=== PATIENT | female | born 1985 | race American Indian/Alaskan Native ===

== ENCOUNTER 2017-09-14 13:07 | Outpatient (CLI) | payer MEDICAID ==
[2017-09-14 13:46] VITALS: BP 114/56
--- NOTE | 2017-09-14 16:26 | Event Note ---
Date: 09/14/17 NST reactive bpp is 10/10 with normal JACKELIN as per report given to provider by charge nurse. Pt will f/u in the am for her scheduled c/s.
--- NOTE | 2017-09-14 17:39 | Ultrasound Report ---
FINAL REPORT EXAM: US OB LIMITED HISTORY: JACKELIN TECHNIQUE: Ultrasound obstetrical transabdominal PRIORS: None. FINDINGS: Limited single live intrauterine gestation present with heart rate of 134 beats per minute Presentation is cephalic Amniotic fluid index is 20.7 centimeters within normal limits IMPRESSION: Amniotic fluid index 20.7 centimeters within normal limits
--- NOTE | 2017-09-14 17:44 | Ultrasound Report ---
FINAL REPORT EXAM: US OB BPP WO NON-STRESS HISTORY: wellbeing TECHNIQUE: Grayscale and color doppler ultrasound of the fetus was performed for biophysical profile. PRIORS: None. FINDINGS: A single, live intrauterine fetus is present with a heart rate of 134 beats per minute. Estimated gestational age is 39 weeks and 3 days with an AIYANA of 09/18/2017. Biophysical profile score of 8 out of 8 was noted. Scores of 2 out of 2 were given for breathing movements, movements, posterior and tone and qualitative amniotic fluid volume IMPRESSION: Normal biophysical profile.
== END 2017-09-14 16:29 | disposition home or self-care (01) ==
LOC: TRG 13:07
PROVIDERS: ATTEND Obstetrics & Gynecology
DX: O47.03 False labor before 37 completed weeks of gestation, third trimester (principal); Z3A.39 39 weeks gestation of pregnancy
CPT/HCPCS: 59025; 76815; 76819

== ENCOUNTER 2017-09-15 03:31 | Inpatient (IN) | payer MEDICAID ==
--- NOTE | 2017-09-14 18:07 | History and Physical Report ---
History of Present Illness Date of examination: 09/14/17 Chief complaint: Repeat delivery History of present illness: Past History : 4 Term Births: 2 Living Children: 2 Para: 2 Elect. Ab: 1 # 1 Delivery date: 05/30/2014 Weeks Gestation: 39 Delivery type: Anesthesia type: epidural Delivery location: [facility] Infant Sex: female weight: 6.75 Comments: breech presentation # 2 Delivery date: 05/02/2016 Weeks Gestation: 39 Delivery type: Anesthesia type: epidural Delivery location: [facility] Sex: female weight: 7.75 Comments: breech presentation # 3 Delivery date: 2011 Delivery type: EAB Past Medical History: Reviewed history from 11/28/2013 and no changes required: Negative Past Medical History Past Surgical History: Breast Biopsy: (B) x3 benign (05/30/2014) x2 Family History Summary: Other family member - Has No Family History of Uterine Cancer - Entered On: 04/27 Other family member - Has No Family History of Stomach Cancer - Entered On: 04/27 Other family member - Has No Family History of Small Bowel Cancer - Entered On: 04/27/2017 Other family member - Has No Family History of Pancreatic Cancer - Entered On: Other family member - Has No Family History of Ovarvian Cancer - Entered On: Other family member - Has No Family History of Kidney/Urinary Tract Cancer - Entered On: 04/27/2017 Other family member - Has No Family History of DVT/PE on OCP - Entered On: 2016 Other family member - Has No Family History of Colon Cancer - Entered On: 2016 Other family member - Has No Family History of Breast Cancer - Entered On: 2016 Other family member - Has No Family History of Brain Cancer - Entered On: 2016 Other family member - Has No Family History of Biliary Tract Cancer - Entered On : 04/27/2017 General Comments - FH: No Family History of Breast Cancer No Family History of Colon Cancer No Family History of Ovarvian Cancer No Family History of DVT/PE on OCP Social History: Reviewed history from 11/05/2015 and no changes required: Patient is Smoking History: Patient has never smoked. Risk Factors: Counseled to quit/cut down: yes Drug use: no Alcohol use: no Exercise: no Previous Tobacco Use: Signed On - 11/05/2015 Smoked Tobacco Use: Never smoker Counseled to quit/cut down: yes Drug use: no Previous Alcohol Use: Signed On - 11/05/2015 Alcohol use: no Exercise: no Seatbelt use: 100 % Dietary Counseling: pn yes PAP Smear History: Date of Last PAP Smear: 11/28/2013 Past Medical History Surgery (Non-director of social work): Breast Biopsy: (B) x3 benign (05/30/2014) x2 Abnormal PAP: negative Other Gynecologic Problems: negative Social Hx: Patient is Smoking History: Patient has never smoked. Infection History Hx of STD: none Personal hx. of genital herpes: no Partner hx. of genital herpes: no Varicella/Chicken Pox Status: Immunized TB Risk: no PPD Result (mm): 04/21 negative Genetic History Congenital Heart Defect: Mom: no Dad: no Sven Disease: Mom: no Dad: no Thalassemia Mom: no Dad: no Neural Tube Defect Mom: no Dad: no Down's Syndrome Mom: no Dad: no Gonzalo-Sachs Mom: no Dad: no Sickle Cell Disease/Trait Mom: no Dad: no Hemophilia Mom: no Dad: no Muscular Dystrophy Mom: no Dad: no Cystic Fibrosis Mom: no Dad: no [place] Chorea Mom: no Dad: no Mental Retardation Mom: no Dad: no Fragile X Mom: no Dad: no Other Genetic/Chromosomal Disorder Mom: no Dad: no Child w/other defect Mom: no Dad: no Other: children alpha thalassemia Enviromental Exposures Enviromental Exposures Reviewed Occupational Exposure to Children: none Comments: not working Active Medications (reviewed today): FERROUS SULFATE MYNATAL 90-1 MG ORAL TABS ( VIT-DSS-FE CBN-FA) 1 tab po qd Current Allergies (reviewed today): No known allergies Past History - Obstetrical History Expected Date of Delivery: 09/18/17 Actual Gestation: 39 Week(s) 3 Day(s) : 4 Medications and Allergies Allergies Allergy/AdvReac Type Severity Reaction Status Date / Time No Known Allergies Allergy Verified 05/30/14 13:11 Home Medications Medication Instructions Recorded Confirmed Last Taken Type Ferrous Sulfate [Iron Supplement] 1 tab PO BID 05/30/14 05/02/16 05/29/14 History Ibuprofen [Motrin 800 MG tab] 800 mg PO TID PRN #30 tablet 05/30/14 05/02/16 Unknown Rx Vit-Fe Fumar-FA [ 1 tab PO DAILY 05/30/14 05/02/16 05/29/14 History Vitamin] oxyCODONE /ACETAMINOPHEN [Percocet 1 - 2 tab PO Q4HR PRN #30 tablet 05/30/14 Unknown Rx 5/325 mg] Ibuprofen [Motrin 800 MG tab] 800 mg PO TID PRN #30 tablet 05/02/16 Unknown Rx oxyCODONE /ACETAMINOPHEN [Percocet 1 - 2 tab PO Q4HR PRN #30 tablet 05/02/16 Unknown Rx 5/325 mg] Active Meds: Active Medications Citric Acid/Sodium Citrate (Bicitra) 30 ml PO ONCE ONE Stop: 09/15/17 07:01 Famotidine (Pepcid) 20 mg IV ONCE ONE Stop: 09/15/17 07:01 Cefazolin Sodium (Ancef/Sterile Water 2 Gm/20 Ml) 2 gm in 20 mls @ 80 mls/hr IV PREOP NR PRN Reason: Protocol Lactated Ringer's (Lactated Ringers) 1,000 mls @ 2,250 mls/hr IV PREOP CHRISTINA Stop: 09/16/17 07:27 Oxytocin/Sodium Chloride (Pitocin/Ns 20 Unit/1000ml Drip) 20 units in 1,000 mls @ 0 mls/hr IV TITR CHRISTINA PRN Reason: As Directed Metoclopramide HCl (Reglan) 10 mg IV ONCE ONE Stop: 09/15/17 07:01 - Physical Exam Breasts: Positive: deferred Cardiovascular: Regular rate Lungs: Positive: Clear to auscultation Abdomen: Positive: normal appearance, soft Genitourinary (Female): Positive: normal external genitalia, normal perenium Vulva: both: normal Uterus: Positive: enlarged Extremities: Positive: normal. Negative: tenderness, edema Results All other labs normal. Assessment and Plan - Patient Problems (1) Maternal care for scar from previous delivery Status: Acute Plan to address problem: She declines sterilization, she was informed she will be a higher risk for complications with each subsequent delivery that could be fatall, such as uterine rupture, injury to organs. She voiced understanding and desires Paragard for contraception Consent reviewed and signed . The risks and alternatives for this surgery were reviewed with the patient. She was informed of possible bleeding, infection, injury to bowel, bladder, ureters or other adjacent organs. The patient was instructed/informed the following: The normal length of hospital stay for this procedure. Nothing to eat or drink after midnight the evening prior to surgery. Pre-op instruction sheets given. Wound care instructions given. Infection precautions reviewed, patient to call for any signs or symptoms of infection. The usual discomforts associated with this procedure were detailed. Proper use of pain medicines was reviewed. Patient was given ample opportunity to have all her questions answered before signing informed consent. (2) 39 weeks gestation of Status: Acute
[2017-09-15] MEDS ORDERED: LACTATED RINGERS 1,000 ML ONE (04:05)
[2017-09-15 06:25] LABS: Hematocrit 30.9 % (30.3-42.9); Hemoglobin 9.5 gm/dl (10.1-14.3); Mean Corpuscular HGB Conc 31 % (30-34); Mean Corpuscular Hemoglobin 21 pg (28-32); Mean Corpuscular Volume 68 fl (79-97); Platelet Count 165 K/mm3 (140-440); Red Blood Count 4.54 M/mm3 (3.65-5.03); Red Cell Distribution Width 16.4 % (13.2-15.2)
[2017-09-15] MEDS ORDERED: PITOCin/NS 20 UNIT/1000ML DRIP 20 UNITS/1,000 ML BAG IV SCH ×2 (07:00→15:18)
[2017-09-15] MEDS ORDERED: PEPCID IV SCH (07:00)
[2017-09-15] MEDS ORDERED: REGLAN IV SCH (07:00)
[2017-09-15] MEDS ORDERED: LACTATED RINGERS 1,000 ML IV SCH (07:00)
[2017-09-15] MEDS ORDERED: BICITRA PO SCH (07:00)
[2017-09-15] MEDS ORDERED: ANCEF/STERILE WATER 2 GM/20 ML 2 GM/20 ML SYRINGE IV NR (07:00)
--- NOTE | 2017-09-15 11:33 | Anesthesia Consultation ---
Anesthesia Consult and Med Hx Date of service: 09/15/17 - Airway Anesthetic Teeth Evaluation: Good ROM Head & Neck: Adequate Mental/Hyoid Distance: Adequate Mallampati Class: Class II Intubation Access Assessment: Probably Good - Pre-Operative Health Status ASA Pre-Surgery Classification: ASA2 Proposed Anesthetic Plan: Epidural, Spinal - Pulmonary Hx Smoking: No Hx Asthma: No COPD: No Hx Pneumonia: No - Cardiovascular System Hx Hypertension: No - Central Nervous System Hx Seizures: No Hx Psychiatric Problems: No - Gastrointestinal Hx Gastroesophageal Reflux Disease: Yes - Endocrine Hx Renal Disease: No Hx End Stage Renal Disease: No Hx Hypothyroidism: No Hx Hyperthyroidism: No - Hematic Hx Anemia: Yes Hx Sickle Cell Disease: No - Other Systems Hx Alcohol Use: No
[2017-09-15] MEDS ORDERED: BENADRYL IV PRN (11:34)
[2017-09-15] MEDS ORDERED: MORPHINE IV PRN ×3 (11:34→15:18)
[2017-09-15] MEDS ORDERED: ZOFRAN IV PRN (11:34)
[2017-09-15] MEDS ORDERED: PHENERGAN PR PRN (11:34)
[2017-09-15] MEDS ORDERED: NARCAN 0.4 MG/1 ML IV PRN ×2 (11:34→15:18)
--- NOTE | 2017-09-15 11:34 | Anesthesia Day of Surgery ---
Anesthesia Day of Surgery - Day of Surgery Patient Examined: Yes Patient H&P Reviewed: Yes Patient is NPO: Yes
[2017-09-15] MEDS ORDERED: SODIUM CHLORIDE FLUSH SYRINGE 10 ML IV SCH (12:00)
[2017-09-15] MEDS ORDERED: WATER FOR IRRIG STERILE IR ONE (12:05)
[2017-09-15] MEDS ORDERED: NACL 0.9% IR ONE (12:05)
[2017-09-15] MEDS ORDERED: MORPHINE ONE (12:08)
[2017-09-15] MEDS ORDERED: NEO SYNEPHRINE/NS Syringe(OR USE) IV ONE (12:40)
[2017-09-15] MEDS ORDERED: METHERGINE IM ONE (12:45)
--- NOTE | 2017-09-15 14:13 | Operative Report ---
Operative Report Operative Report: Date: 09/15/2017 Preoperative diagnosis: 1. Intrauterine at 39 weeks gestatiob 2. Previous delivery 2 Postoperative diagnosis: 1. Intrauterine at 39 weeks gestatiob 2. Previous delivery 2 Procedure: Low uterine transverse incision for delivery Surgeon: Coleen De Souza MD Clean Out Driller Helper: Tiffany Thompson CST Anesthesia: Spinal Anesthesiologist: Fransisco Melgar M.D. Estimated blood loss: 700 mL Urine out: [] mL Findings: Live born female . Weight 7 lbs. 7 oz. Apgars 9 at 1 minute and 9 at 9 minutes. Uterus normal, tubes normal, ovaries normal. Procedure: After risk, benefits, complications, consequences and alternatives for this procedure were discussed with patient and consents were reviewed and signed, she was taken to the OR where spinal anesthesia was placed. She was then placed in the left lateral tilt position, and prepped and draped in the usual sterile fashion. Timeout was performed, and an appropriate level of anesthesia was noted, a Pfannenstiel incision was made and extended to the fascia which was incised and extended in the lateral directions. The overlying fascia was sharply dissected away from the underlying rectus muscles in the superior and inferior directions. The midline was entered bluntly. The large Alexia self-retaining retractor was placed. The vesicouterine fold was incised and with blunt dissection the bladder flap was created. A transverse incision was made in the lower uterine segment and extended in superiolateral direction with finger fractionation. Clear fluid was noted. The was delivered from cephalic position. Mouth and nose were bulb suctioned. Spontaneous cry and excellent tone were noted. Cord was doubly clamped and cut. The infant was given to /resuscitation team present. The placenta was manually extracted. The uterus was then exteriorized and cleared of any further products of conception or placental tissue. The incision was reapproximated using 0 Vicryl in a running interlocking stitch. The uterine incision was reinforced with an imbricating stitch of 0 Vicryl. Grossly normal uterus, tubes and ovaries were noted. Once hemostasis was noted, the uterus was allowed back into the pelvic cavity. The pelvis was irrigated with warm normal saline. Again hemostasis was noted . Surgicel applied for further hemostasis. Interceed was then placed to prevent adhesions. Then attention was turned to the rectus muscles. The rectus muscles reapproximated using 0 Vicryl in a simple interrupted stitch x 3. Once hemostasis was noted, the fascia was reapproximated using 0 Vicryl running stitch fashion. Once hemostasis was noted skin incision was reapproximated using 4-0 Vicryl on a Merrill needle in a subcuticular manner. Counts were correct 3. Patient tolerated procedure well state recovery room in stable condition.
[2017-09-15] MEDS: TORADOL IV PRN (14:20)
[2017-09-15] MEDS ORDERED: TUCKS PAD TP PRN (15:18)
[2017-09-15] MEDS ORDERED: MILK OF MAGNESIA PO PRN (15:18)
[2017-09-15] MEDS ORDERED: ANCEF/NS 1 GM/50 ML 1 GM/50 ML BAG IV SCH (15:18)
[2017-09-15] MEDS ORDERED: TYLENOL PO PRN (15:18)
[2017-09-15] MEDS ORDERED: TYLENOL PR PRN (15:18)
[2017-09-15] MEDS ORDERED: MYLICON PO PRN (15:18)
[2017-09-15] MEDS ORDERED: NUBAIN IV ONE (18:34)
--- NOTE | 2017-09-15 21:01 | Post Anesthesia Evaluation ---
- Post Anesthesia Evaluation Patient Participated: Yes Airway Patent: Yes Stable Respiratory Function: Yes Nausea/Vomiting: No Temp > 96.8F: Yes Pain Manageable: Yes Adequeate Hydration: Yes Anesthesia Complications: No Block Receding Appropriately: Not Applicable Patient on Ventilator: No
[2017-09-15] MEDS: D5LR 1,000 ML IV SCH (21:37)
[2017-09-15] MEDS: ceFAZolin 1 GM in NACL 0.9% 20 ML IV SCH (21:38)
[2017-09-16] MEDS: LANSINOH TP PRN (01:09)
[2017-09-16 01:36] LABS: Hematocrit 28.3 % (30.3-42.9); Hemoglobin 8.8 gm/dl (10.1-14.3)
[2017-09-16] MEDS: ceFAZolin 1 GM in NACL 0.9% 20 ML IV SCH (03:53)
[2017-09-16] MEDS: TORADOL IV PRN (03:54)
[2017-09-16] MEDS: D5LR 1,000 ML IV SCH (03:58)
[2017-09-16] MEDS ORDERED: BOOSTRIX IM ONE (06:00)
--- NOTE | 2017-09-16 06:14 | Progress Note ---
Assessment and Plan - Patient Problems (1) delivery delivered Onset Date: ~09/15/17 Current Visit: No Status: Acute Plan to address problem: Pt A&O X 3 No c/o voiced OOB to toilet. VSS FF below umb Lochia small Dressing removed Incision D&I H&H 05/04 chronic anemia Drop r/t blood loss from surgery Doing well s/p repeat c/s P: continue pathway Advance diet and activity as tolerated. Subjective - Subjective Date of service: 09/16/17 (OOB to toilet No c/o voiced) Principal diagnosis: DAy # 1 s/p repeat section Patient reports: appetite normal, voiding normally, pain well controlled, ambulating normally Mears: doing well Objective - Vital Signs Latest vital signs: Vital Signs Temp Pulse Resp BP BP Pulse Ox 09/16/17 05:01 98.4 F 88 20 132/63 09/16/17 03:54 20 09/16/17 00:00 98.6 F 95 H 20 124/74 09/15/17 20:10 98.0 F 82 18 117/63 09/15/17 14:55 97.6 F 77 18 138/84 100 09/15/17 14:25 97.7 F 75 21 122/76 100 09/15/17 14:20 75 22 128/79 100 09/15/17 14:15 80 11 L 126/92 100 09/15/17 14:10 33 H 108/73 100 09/15/17 14:05 68 27 H 110/81 100 09/15/17 14:00 66 25 H 117/77 100 09/15/17 13:55 72 23 114/77 100 09/15/17 13:51 23 09/15/17 13:50 71 31 H 117/75 100 09/15/17 13:45 74 32 H 109/77 100 09/15/17 13:39 71 17 110/72 100 09/15/17 13:33 69 15 111/67 100 09/15/17 13:27 72 17 112/66 100 09/15/17 13:21 74 15 111/71 100 09/15/17 13:16 74 15 100 09/15/17 13:15 97.6 F 74 16 112/62 100 Intake and Output 09/15/17 09/15/17 09/16/17 14:59 22:59 06:59 Intake Total 1694 689 8286.75 Output Total 500 400 550 Balance 1200 -160 603.75 Intake: IV 1700 793.75 D5lr 1,000 ml @ 125 mls/ 793.75 hr IV DIRECT CHRISTINA Rx#: [id number] Oral 120 360 Intake, Free Water 120 Output: Urine 500 400 550 Indwelling Catheter 400 200 Void 350 Other: Total, Intake Amount 120 240 Total, Output Amount 200 350 Voiding Method Indwelling Catheter # Voids Void 1 Estimated Blood Loss 700 - Exam Breasts: Present: normal Cardiovascular: Present: Regular rate Lungs: Present: Normal air movement Abdomen: Present: normal appearance, soft, normal bowel sounds Vulva: both: normal Uterus: Present: normal, firm, fundal height below umbilicus Extremities: Present: normal Deep Tendon Reflex Grade: Normal +2 Incision: Present: normal, dry (dressing removed at time of rounds), intact - Labs Labs: Abnormal lab results 09/15/17 09/16/17 Range/Units Unknown 01:07 Hgb 9.5 L 8.8 L (10.1-14.3) gm/dl Hct 28.3 L (30.3-42.9) % MCV 68 L (79-97) fl MCH 21 L (28-32) pg RDW 16.4 H (13.2-15.2) %
[2017-09-16] MEDS: MOTRIN PO PRN (13:59)
[2017-09-16] MEDS: PERCOCET 5/325 PO PRN (14:00)
[2017-09-17] MEDS: PERCOCET 5/325 PO PRN (00:07)
[2017-09-17] MEDS: MOTRIN PO PRN ×3 (05:27→17:41)
--- NOTE | 2017-09-17 07:27 | Discharge Summary ---
Providers - Providers Date of Admission: 09/15/17 03:31 Date of discharge: 09/17/17 (pt states she desires d/c today) Attending physician: RAMÓN ALVAREZ 09/15/17 15:18 Consult to Manager Of Allied Health Services [CONS] Routine Reason For Exam: Primary care physician: RAMÓN ALVAREZ Hospitalization Reason for admission: section Delivery: Procedure: repeat low transverse Episiotomy: none Laceration: none Incision: normal, dry, intact Other procedures: none complications: none Discharge diagnosis: IUP at term delivered [place] baby: female Hospital course: uncomplicated repeat section Pt w/o complaint VSS FF below umb Lochia scant Incision D&I Asymptomatic anemia Doing well s/p repeat c/s P: d/c today with instructions RTO 1 week Postop care. Condition at discharge: Good Disposition: - TO HOME OR SELFCARE - Discharge Diagnoses (1) delivery delivered Status: Acute Comment: RTO 1 week postop care Plan - Discharge Medications Prescriptions: Docusate Sodium [Colace] 100 mg PO BID PRN #30 capsule PRN Reason: Constip Unreliev By Mom/Or Npo Ferrous Sulfate [Feosol 325 MG tab] 325 mg PO BID #90 tablet Ibuprofen [Motrin 800 MG tab] 800 mg PO TID PRN #30 tablet PRN Reason: Pain oxyCODONE /ACETAMINOPHEN [Percocet 5/325 mg] 1 - 2 tab PO Q4HR PRN #30 tablet PRN Reason: Pain oxyCODONE /ACETAMINOPHEN [Percocet 5/325 mg] 1 - 2 tab PO Q4HR PRN #30 tablet PRN Reason: Pain - Provider Discharge Summary Activity: routine, no sex for 6 weeks, no heavy lifting 4 weeks, no strenuous exercise Diet: routine Instructions: routine Additional instructions: [] Smoking cessation referral if applicable(refer to patient education folder for contact #) [] Refer to [facility]'s [facility] Booklet Call your doctor immediately for: * Fever > 100.5 * Heavy vaginal bleeding ( >1 pad per hour) * Severe persistent headache * Shortness of breath * Reddened, hot, painful area to leg or breast * Drainage or odor from incision. * Keep incision clean and dry at all times and follow doctor's instructions regarding bathing/showering - Follow up plan Follow up: RAMÓN ALVAREZ MD [Primary Care Provider] - 7 Days (Congratulations! Please call [phone] to schedule your postoperative visit in 1 week. Take medications as prescribed. Call with concerns.)
[2017-09-17] MEDS: LANSINOH TP PRN (17:58)
[2017-09-17 18:30] VITALS: BP 120/78
== END 2017-09-17 18:53 | disposition home or self-care (01) | DRG 765 ==
LOC: APU 03:31 → OB 15:13
PROVIDERS: ADMIT Obstetrics & Gynecology; ATTEND Obstetrics & Gynecology
PROC: 10D00Z1 Extraction of Products of Conception, Low, Open Approach (ICD-10-PCS; principal; 2017-09-15)
PROC: 3E0234Z Introduction of Serum, Toxoid and Vaccine into Muscle, Percutaneous Approach (ICD-10-PCS; 2017-09-16)
DX: O99.02 Anemia complicating childbirth (principal); R71.0 Precipitous drop in hematocrit; O99.62 Diseases of the digestive system complicating childbirth; O34.219 Maternal care for unspecified type scar from previous cesarean delivery; Z3A.39 39 weeks gestation of pregnancy; Z23 Encounter for immunization; Z37.0 Single live birth; K21.9 Gastro-esophageal reflux disease without esophagitis
CPT/HCPCS: 36415; 85014; 85018; 85027; 86592; 86850; 86900; 86901; 99211; A6250; C1765; G0463; J0690; J1200; J1885; J2210; J2270; J2300; J2370; J2590; J2765; J7120; J7121